=== PATIENT | female | born 1960 | race Asian ===

== ENCOUNTER 2017-01-02 14:34 | Emergency (ER) | payer BC ==
[~2017-01-02] VITALS: Ht 157.5 cm; Wt 82.5 kg
[~2017-01-02 14:34] MED LIST: AZIT250T94 PO; LISI20TA11
[2017-01-02 14:37] VITALS: Ht 157.5 cm; Wt 82.5 kg
--- NOTE | 2017-01-02 15:53 | RADRPT ---
PROCEDURE: Right knee series. CLINICAL INDICATION: Right knee pain TECHNIQUE: Three views of the right knee are available for review. COMPARISON: None available FINDINGS: There is normal mineralization and alignment of the bones of the right knee. No acute fracture or d islocation is identified. There is mild medial joint space narrowing and osteophyte formation. Sma ll lateral and patellofemoral osteophytes are also present There is no joint effusion. The soft tis sues are within normal limits. IMPRESSION: 1. Tricompartmental degenerative change of the right knee. 2. Otherwise unremarkable right knee series. RPTAT: KK .Tolu Staton MD, MD Date Time Electronically viewed and signed by .Tolu Staton MD, on 01/02/2017 15:52 .B/
[2017-01-02] MEDS ORDERED: NAPR-260 PO (17:20)
--- NOTE | 2017-01-02 17:29 | RADRPT ---
PROCEDURE: US right lower extremity veins. CLINICAL INDICATION: Right leg pain and swelling. TECHNIQUE: Multiple longitudinal and transverse images of the right lower extremity veins were obt ained with benoit scale and color Doppler imaging. The common femoral vein, femoral vein, and poplitea l vein were evaluated. 2D grayscale measurements with compression sonography, pulsed Doppler, color Doppler, and pulsed Doppler with augmentation. COMPARISON: No prior studies are available for comparison. FINDINGS: The right common femoral, femoral and popliteal veins are normally compressible throughout. Color f low demonstrates normal filling of the vessels. Normal waveforms are visualized and there is normal response to augmentation. IMPRESSION: 1. No evidence of deep vein thrombosis involving the right lower extremity. RPTAT: QQ .Farooq Layton MD, MD Date Time Electronically viewed and signed by .Farooq Layton MD, on 01/02/2017 17:28 .R/
--- NOTE | 2017-01-02 17:30 | ERD ---
ER Documentation Chief Complaint Date/Time DATE: 01/02/17 TIME: 17:27 Chief Complaint Complains of right knee pain x 5 days HPI 56-year-old female patient with a past medical history of hypertension, breast cancer presents the ED complaining of right knee pain that started 5 days ago. Reports that this is the same chronic knee pain that has been going on for the last few years however worse in last few days. Reports that she is a history of breast cancer and is currently taking lisinopril, HCTZ and folic acid. Reports that the pain is worsened when she flexes and extends her knee. Denies any chest pain, shortness of breath, fever, chills, loss of sensation, loss of range of motion. ROS All systems reviewed and are negative except as per history of present illness. Medications Home Meds Active Scripts Naproxen* (Naprosyn*) 500 Mg Tablet, 500 MG PO BID Y for PAIN AND/OR INFLAMMATION, #30 TAB Prov:URSZULA HAAS PA-C 01/02/17 Azithromycin* (Zithromax*) 250 Mg Tablet, 250 MG PO .ZPACK DIRECTED, #6 TAB 0 Refills TAKE 500 MG (2 TABS) THE FIRST DAY THEN 250 MG (1 TAB) DAYS 2-5 Prov:ERIK AVENDANO PA-C 07/24/15 Reported Medications Lisinopril* (Lisinopril*) 20 Mg Tablet 08/19/09 Allergies Allergies: Coded Allergies: No Known Drug Allergy (Verified Allergy, Unknown, 02/28/10) PMhx/Soc History of Surgery: No Anesthesia Reaction: No Hx Neurological Disorder: No Hx Respiratory Disorders: No Hx Cardiac Disorders: Yes (HTN) Hx Psychiatric Problems: No Hx Miscellaneous Medical Probl: No Hx Alcohol Use: No Hx Substance Use: No Hx Tobacco Use: No Smoking Status: Never smoker Physical Exam Vitals Vital Signs Date Time Temp Pulse Resp B/P Pulse Ox O2 Delivery O2 Flow Rate FiO2 01/02/17 14:37 98.6 110 20 176/81 95 Physical Exam Const: [id number], well-nourished. In no acute distress. Head: Atraumatic, normocephalic Eyes: Normal Conjunctiva without injection ENT: Normal external ear, nose and mouth. Neck: Full range of motion. No meningismus. Resp: Clear to auscultation bilaterally. No wheezing, rhonchi, rales, or crackles. No accessory muscle use. No retractions. Cardio: Regular rate and rhythm, no murmurs Skin: No petechiae or rashes Back: No midline tenderness. No CVA tenderness. Ext: No cyanosis, or edema. Cap refill less than 2 seconds. Distal pulses intact bilaterally. Tenderness to palpation of the right medial knee. No erythema, edema. No purulent discharge. No fluctuance. Full range of motion with flexion, extension. Neur: Awake and alert. Normal gait and coordination. Muscle strength 5/5. Sensation intact bilaterally. Psych: Normal Mood and Affect Procedures/MDM This is a 56-year-old female patient with no significant past medical history presents the ED complaining right knee pain that started 5 days ago. Reports that the pain is in the calf as well. Patient is afebrile nontoxic appearing. Patient has normal vital signs. A right knee x-ray and venous ultrasound was ordered to further evaluate patient. PROCEDURE: Right knee series. CLINICAL INDICATION: Right knee pain TECHNIQUE: Three views of the right knee are available for review. COMPARISON: None available FINDINGS: There is normal mineralization and alignment of the bones of the right knee. No acute fracture or dislocation is identified. There is mild medial joint space narrowing and osteophyte formation. Small lateral and patellofemoral osteophytes are also present There is no joint effusion. The soft tissues are within normal limits. IMPRESSION: 1. Tricompartmental degenerative change of the right knee. 2. Otherwise unremarkable right knee series. Patient is placed in a Brian wrap placement. Patient was able to ambulate without difficulty. Patient denied wanting any crutches. Splint Assessment: Neurovascularly intact pre and post Brian wrap placement with good fit. Patient's extremity symptoms have stabilized while they have been evaluated in the department and are appropriate for outpatient follow up. No evidence of fractures, dislocations, compartment syndrome, neurologic injury, vascular injury, open joint, open fracture, tendon laceration, septic arthritis, osteomyelitis, DVT, foreign body, or other emergent conditions. Discharge medications: Naproxen Follow up with primary care physician in 1-2 days for referral to an orthopedic physician. Instructed patient to return to the ED sooner for any worsening symptoms. Patient's questions were answered. Patient understood and agreed with discharge plan. Patient discharged stable. Departure Diagnosis: Primary Impression: Right knee pain Chronicity: unspecified Qualified Code: M25.561 - Right knee pain, unspecified chronicity Condition: Stable Patient Instructions: Knee Pain, Uncertain Cause Referrals: [facility] YOU HAVE RECEIVED A MEDICAL SCREENING EXAM AND THE RESULTS INDICATE THAT YOU DO NOT HAVE A CONDITION THAT REQUIRES URGENT TREATMENT IN THE EMERGENCY DEPARTMENT. FURTHER EVALUATION AND TREATMENT OF YOUR CONDITION CAN WAIT UNTIL YOU ARE SEEN IN YOUR DOCTORS OFFICE WITHIN THE NEXT 1-2 DAYS. IT IS YOUR RESPONSIBILITY TO MAKE AN APPOINTMENT FOR FOLOW-UP CARE. IF YOU HAVE A PRIMARY DOCTOR --you should call your primary doctor and schedule an appointment IF YOU DO NOT HAVE A PRIMARY DOCTOR YOU CAN CALL OUR PHYSICIAN REFERRAL HOTLINE AT IF YOU CAN NOT AFFORD TO SEE A PHYSICIAN YOU CAN CHOSE FROM THE FOLLOWING [facility] [address] [facility] [address] [facility] [address] [facility] [address] [facility] [address] [facility]. [facility] [address] [facility]. [facility] YOU HAVE RECEIVED A MEDICAL SCREENING EXAM AND THE RESULTS INDICATE THAT YOU DO NOT HAVE A CONDITION THAT REQUIRES URGENT TREATMENT IN THE EMERGENCY DEPARTMENT. FURTHER EVALUATION AND TREATMENT OF YOUR CONDITION CAN WAIT UNTIL YOU ARE SEEN IN YOUR DOCTORS OFFICE WITHIN THE NEXT 1-2 DAYS. IT IS YOUR RESPONSIBILITY TO MAKE AN APPOINTMENT FOR FOLOW-UP CARE. IF YOU HAVE A PRIMARY DOCTOR --you should call your primary doctor and schedule and appointment IF YOU DO NOT HAVE A PRIMARY DOCTOR YOU CAN CALL OUR PHYSICIAN REFERRAL HOTLINE AT . IF YOU CAN NOT AFFORD TO SEE A PHYSICIAN YOU CAN CHOSE FROM THE FOLLOWING [facility] INSTITUTIONS: [facility] [address] [place] [address] [facility] [address] [place] [address] [facility] + [facility] [address] [place] [address] [facility] Additional Instructions: Call your primary care doctor TOMORROW for an appointment during the next 2-3 days.See the doctor sooner or return here if your condition worsens before your appointment time. URSZULA HAAS PA-C Jan 02, 2017 17:30
== END 2017-01-02 19:00 | disposition home or self-care (01) ==
LOC: FTE 14:34
DX: M25.561 Pain in right knee (principal); I10 Essential (primary) hypertension
CPT/HCPCS: 73562; 93971

== ENCOUNTER 2018-07-13 15:07 | Emergency (ER) | payer BC ==
[~2018-07-13] VITALS: Ht 167.6 cm; Wt 83.7 kg
[~2018-07-13 15:07] MED LIST changes: +AZIT250T PO; -AZIT250T94 PO; +LISI-471; -LISI20TA11; +NAPR-985 PO
[2018-07-13 15:29] VITALS: Ht 167.6 cm; Wt 83.7 kg
[2018-07-13] MEDS ORDERED: KETOROLAC 30 MG INJ IM STA (16:59)
[2018-07-13] MEDS ORDERED: COLC0.6T6 PO (17:06)
--- NOTE | 2018-07-13 17:46 | ERD ---
ER Documentation Chief Complaint Chief Complaint Complains of left knee pain HPI 57-year-old female presents for day history of knee pain to the left knee. Denies any history of trauma states that she has a history of gout and she has had this before. She thinks it is another gout attack. She says the only medication that works for her is colchicine and requests that. Denies numbness, tingling. Denies impaired ROM. History of hypertension and gout. Denies allergies. Taking lisinopril. Denies surgeries. Denies alcohol, tobacco, drug use. Up to date on vaccines. ROS All systems reviewed and are negative except as per history of present illness. Medications Home Meds Active Scripts Colchicine* (Colcrys*) 0.6 Mg Tablet, 0.6 MG PO BID for Gout for 3 Days, #14 TAB Take 2 tabs bobby on day 1, followed by 1 tab one hour later. On days 2-3, take 1 pill bid. Prov:REYNA SPARKS 07/13/18 Naproxen* (Naprosyn*) 500 Mg Tablet, 500 MG PO BID PRN for PAIN AND/OR INFLAMMATION, #30 TAB Prov:URSZULA HAAS PA-C 01/02/17 Azithromycin* (Zithromax*) 250 Mg Tablet, 250 MG PO .ZPACK DIRECTED, #6 TAB 0 Refills TAKE 500 MG (2 TABS) THE FIRST DAY THEN 250 MG (1 TAB) DAYS 2-5 Prov:ERIK AVENDANO PA-C 07/24/15 Reported Medications Lisinopril* (Lisinopril*) 20 Mg Tablet 08/19/09 Allergies Allergies: Coded Allergies: No Known Drug Allergy (Verified Allergy, Unknown, 02/28/10) PMhx/Soc History of Surgery: Yes (MYOMECTOMY,LEFT ANKLE) Anesthesia Reaction: No Hx Neurological Disorder: No Hx Respiratory Disorders: No Hx Cardiac Disorders: Yes (HTN) Hx Psychiatric Problems: No Hx Miscellaneous Medical Probl: No Hx Alcohol Use: No Hx Substance Use: No Hx Tobacco Use: No FmHx Family History: No diabetes, No coronary disease, No other Physical Exam Vitals Vital Signs Date Temp Pulse Resp B/P (MAP) Pulse Ox O2 O2 Flow FiO2 Time Delivery Rate 07/13/18 99.1 78 20 182/75 98 15:29 (110) Physical Exam Const: No acute distress Resp: Clear to auscultation bilaterally Cardio: Regular rate and rhythm, no murmurs Ext: Left knee appears normal without any signs of fracture or infection. Nontender to palpation without erythema or edema. full range of motion. Distal pulses and sensation intact. Patient is ambulatory and weightbearing. Neur: Awake and alert Psych: Normal Mood and Affect Results 24 hrs Current Medications Medications Dose Sig/Gerardo Start Time Status Last (Trade) Ordered Route PRN Stop Time Admin Dose Reason Admin Ketorolac 30 mg ONCE STAT 07/13/18 DC Tromethamine IM 16:59 (Toradol) 07/13/18 17:01 Procedures/MDM DIAGNOSTIC IMAGING REPORT Patient: CLIFTON ZAMORANO : 1960 Age: 57 Sex: F MR #: [id number] DOS: 07/13/18 1657 Ordering MD: REYNA SPARKS Location: [facility] Room/Bed: PROCEDURE: LEFT knee x-ray CLINICAL INDICATION: Knee pain TECHNIQUE: AP, lateral and tunnel views of the knee were obtained. COMPARISON: None FINDINGS: There is normal mineralization. No acute fracture or dislocation is seen. There is a small left knee joint effusion. There is joint space narrowing and associated osteophytes. This is more pronounced in the medial compartment. There is no significant soft tissue swelling. RPTAT: AA IMPRESSION: Moderate degenerative changes of the left knee, more pronounced in the medial compartment. Small left knee joint effusion. .Fabrizio Campos MD, MD Date Time Electronically viewed and signed by .Fabrizio Campos MD, on 07/13/2018 17:24 .S/ CC: REYNA SPARKS [id number] MDM: 57-year-old female presents for day history of knee pain to the left knee. Denies any history of trauma states that she has a history of gout and she has had this before. She thinks it is another gout attack. She says the only medi cation that works for her is colchicine and requests that. Denies numbness, tingling. Denies impaired ROM. X-rays were taken of the knee and results were within normal limits. I have low suspicion for fracture, blood clot, septic joint, or other emergent problem. Patient is most likely having another gout attack for which colchicine was prescribed. Patient discharged with strict ER precautions. Patient advised to follow up with PMD. All questions answered at discharge. Departure Diagnosis: Primary Impression: Knee pain Chronicity: acute Laterality: left Qualified Codes: M25.562 - Pain in left knee Additional Impression: Gout attack Gout site: knee Gout etiology: unspecified cause Laterality: left Qualified Codes: M10.9 - Gout, unspecified Condition: Stable Patient Instructions: Treating Gout Attacks, Gout Diet, Colchicine Oral tablet [facility]errals: [facility] YOU HAVE RECEIVED A MEDICAL SCREENING EXAM AND THE RESULTS INDICATE THAT YOU DO NOT HAVE A CONDITION THAT REQUIRES URGENT TREATMENT IN THE EMERGENCY DEPARTMENT. FURTHER EVALUATION AND TREATMENT OF YOUR CONDITION CAN WAIT UNTIL YOU ARE SEEN IN YOUR DOCTORS OFFICE WITHIN THE NEXT 1-2 DAYS. IT IS YOUR RESPONSIBILITY TO MAKE AN APPOINTMENT FOR FOLOW-UP CARE. IF YOU HAVE A PRIMARY DOCTOR --you should call your primary doctor and schedule an appointment IF YOU DO NOT HAVE A PRIMARY DOCTOR YOU CAN CALL OUR PHYSICIAN REFERRAL HOTLINE AT IF YOU CAN NOT AFFORD TO SEE A PHYSICIAN YOU CAN CHOSE FROM THE FOLLOWING [facility] CL[facility] [address] [facility]. [facility] [address] [facility] [address] [facility] [address] [facility] [address] [facility] [facility]. [address] Additional Instructions: FOLLOW UP WITH YOUR PRIMARY CARE PHYSICIAN TOMORROW.Return to this facility if you are not improving as expected. REYNA SPARKS Jul 13, 2018 17:46
== END 2018-07-13 17:53 | disposition home or self-care (01) ==
LOC: FTE 15:07
DX: M25.562 Pain in left knee (principal); I10 Essential (primary) hypertension; M10.9 Gout, unspecified
CPT/HCPCS: 73562; 99283